=== PATIENT | male | born 1965 | race Caucasian/White ===

== ENCOUNTER 2019-06-19 03:46 | Emergency (ER) | payer SELFPAY ==
[2019-06-19] MEDS ORDERED: EPINEPHRINE INJ/PF 1 MG/1 ML AMPULE ONE (04:05)
[2019-06-19] MEDS ORDERED: EPINEPHRINE INJ/PF 1 MG/1 ML AMPULE IM ONE (04:07)
[2019-06-19] MEDS ORDERED: DIPHENHYDRAMINE HCL 50 MG/ML VIAL IV ONE (04:08)
[2019-06-19] MEDS ORDERED: METHYLPREDNISOLONE INJ 125 MG/2 ML SDV IV ONE (04:08)
[2019-06-19] MEDS ORDERED: FAMOTIDINE INJ/PF 20 MG/2 ML SDV IV ONE (04:08)
[2019-06-19] MEDS ORDERED: NORMAL SALINE 250 ML IV PRN ×2 (04:12)
--- NOTE | 2019-06-19 04:18 | ER Document Report ---
ED ENT - General Chief Complaint: allerigc reaction Stated Complaint: ALLERGIC REACTION Time Seen by Provider: 06/19/19 04:00 Notes: Patient is a 53-year-old male that comes emergency department for chief complaint of swelling to the lips and face. He states his voice is starting to get a little bit muffled to. He states this started about 3 PM but worsened over the past 12 hours including over the past hour to the point that he came in with his to the emergency department. He denies painful or difficulty swallowing, he denies shortness of breath. He states he has had some cough, cold, congestion over the past couple of days and he was started on Phenergan and dextromethorphan along with Tiffanie by urgent care. He states he takes no prescribed daily medications include lisinopril. He denies any diagnosed medical history. He denies history of angioedema. He denies any other complaints. TRAVEL OUTSIDE OF THE [place] IN LAST 30 DAYS: Yes - Related Data Allergies/Adverse Reactions: No Known Allergies Allergy (Unverified 12/05/13 09:43) Home Medications: promathazine. Tiffanie D Past Medical History - General Information source: Patient - Social History Smoking Status: Current Every Day Smoker Chew tobacco use (# tins/day): No Frequency of alcohol use: None Drug Abuse: None Lives with: Family Family History: Reviewed & Not Pertinent Patient has suicidal ideation: No Patient has homicidal ideation: No - Past Medical History Cardiac Medical History: Reports: Hx Hypercholesterolemia Past Surgical History: Reports: Hx Orthopedic Surgery - right knee - Immunizations Hx Diphtheria, Pertussis, Tetanus Vaccination: Yes Review of Systems - Review of Systems Constitutional: No symptoms reported EENT: See HPI Cardiovascular: No symptoms reported Respiratory: No symptoms reported Gastrointestinal: No symptoms reported Genitourinary: No symptoms reported Male Genitourinary: No symptoms reported Musculoskeletal: No symptoms reported Skin: No symptoms reported Hematologic/Lymphatic: No symptoms reported Neurological/Psychological: No symptoms reported Physical Exam - Vital signs Vitals: Temp Pulse Resp BP Pulse Ox 97.7 F 79 18 137/85 H 97 06/19/19 03:53 06/19/19 03:53 06/19/19 03:53 06/19/19 03:53 06/19/19 03:53 - Notes Notes: GENERAL: Alert, interacts well. HEAD: Normocephalic, atraumatic. EYES: Pupils equal, round, and reactive to light. Extraocular movements intact. ENT: Very swollen lips especially in the lower lip with angioedema. Tongue is normal, oropharynx is normal, uvula is normal. Airway patent. Nares patent, no nasal septal hematoma, TM's intact. NECK: Full range of motion. Supple. Trachea midline. LUNGS: Clear to auscultation bilaterally, no wheezes, rales, or rhonchi. No respiratory distress. HEART: Regular rate and rhythm. No murmur ABDOMEN: Soft, non-tender. Non-distended. EXTREMITIES: Moves all 4 extremities spontaneously. No edema, normal radial and dorsalis pedis pulses bilaterally. No cyanosis. BACK: no cervical, thoracic, lumbar midline tenderness. No saddle anesthesia, normal distal neurovascular exam. Moves all extremities in full range of motion. NEUROLOGICAL: Alert and oriented x3. Normal speech. Cranial nerves II through XII grossly intact. PSYCH: Normal affect, normal mood. SKIN: Warm, dry, normal turgor. No rashes or lesions noted. Course - Re-evaluation Re-evalutation: 06/19/19 04:15 Patient's evaluation shows large amount of swelling to the lips, especially to the lower lip, he has a slightly muffled voice but he is still able to speak without difficulty. He is not drooling. His tongue is not swollen, his posterior pharynx, soft palate, and airway are not swollen or obstructed. Patient denies difficulty breathing. He is not wheezing. He has no signs of distress. Patient is technically grade 1 angioedema at this time. I did discuss with Dr. Sy and he did evaluate the patient at bedside. Patient is being given antihistamines, epinephrine, and he will be also given FFP. Patient will be closely reevaluated for any signs of progression or impending airway compromise. 06/19/19 04:35 Patient has not had any benefit from the epinephrine, Benadryl, Solu-Medrol, Pepcid. However he is not any worse, he has not progressed, he has no signs of distress. This appears to be angioedema and patient will continue to be closely monitored. Patient is receiving the FFP. He has been reevaluated twice more and is actually improving. His lips are noticeably less swollen. He has no swelling of the posterior pharynx, tongue, airway. He is tolerating his secretions without any difficulty. He denies shortness of breath. Laboratory work-up unremarkable. Patient's evaluation is consistent with angioedema and he is improving. Patient will be monitored for several hours more to make sure he continues to improve and does not have any worsening symptoms. After this patient will be discharged home and simply take his Tiffanie but he will avoid his Phenergan and dextromethorphan. Patient was discussed with Dr. Joseph who will monitor the patient. Patient states appreciation and agreement. - Vital Signs Vital signs: Temp Pulse Resp BP Pulse Ox 97.5 F 70 24 H 131/77 H 97 06/19/19 05:50 06/19/19 05:50 06/19/19 06:01 06/19/19 06:00 06/19/19 06:01 - Laboratory Result Diagrams: 06/19/19 04:05 Laboratory results interpreted by me: 06/19/19 04:05 WBC 11.2 H Hgb 17.2 H Discharge - Discharge Clinical Impression: Angioedema Qualifiers: Encounter type: initial encounter Qualified Code(s): T78.3XXA - Angioneurotic edema, initial encounter Condition: Stable Disposition: HOME, SELF-CARE Additional Instructions: Your evaluation is consistent with angioedema. This should simply continue to r esolve with time. I do recommend you continue to take your Tiffanie for the next 7 days, but because of your symptoms and the uncertain source I suggest you stop the cough syrup. Follow close with primary care. Return if you worsen in any way including increased swelling, difficulty swallowing or breathing, or any other concerning or worsening symptoms. Forms: Return to Work
[2019-06-19 04:29] LABS: ABSOLUTE BASOPHILS # (AUTO) 0.1 10^3/uL (0.0-0.2); ABSOLUTE EOSINOPHILS # (AUTO) 0.1 10^3/uL (0.0-0.6); ABSOLUTE LYMPHOCYTES (AUTO) 3.8 10^3/uL (0.5-4.7); ABSOLUTE MONOCYTES (AUTO) 1.3 10^3/uL (0.1-1.4); ABSOLUTE NEUT (AUTO) 6.1 10^3/uL (1.7-8.2); BASOPHILS % (AUTO) 0.5 % (0-2); EOSINOPHILS % (AUTO) 0.5 % (0-6); HEMOGLOBIN 17.2 g/dL (13.5-17.0); LYMPHOCYTES % (AUTO) 33.4 % (13-45); MEAN CORPUSCULAR HEMOGLOBIN 31.4 pg (27.0-33.4); MEAN CORPUSCULAR HGB CONC 34.3 g/dL (32.0-36.0); MEAN CORPUSCULAR VOLUME 92 fl (80-97); MONOCYTES % (AUTO) 11.2 % (3-13); PLATELET COUNT 227 10^3/uL (150-450); RED BLOOD COUNT 5.46 10^6/uL (4.35-5.55); RED CELL DISTRIBUTION WIDTH 12.6 % (11.5-14.0); SEGMENTED NEUTROPHILS % (AUTO) 54.4 % (42-78); TOTAL CELLS COUNTED % (AUTO) 100 %; WHITE BLOOD COUNT 11.2 10^3/uL (4.0-10.5)
[2019-06-19 05:06] LABS: PROTHROMBIN TIME 12.1 SEC (11.4-15.4)
--- NOTE | 2019-06-19 07:18 | ER Document Report ---
ED General - General Chief Complaint: Edema Stated Complaint: ALLERGIC REACTION Time Seen by Provider: 06/19/19 04:00 TRAVEL OUTSIDE OF THE [place] IN LAST 30 DAYS: Yes - Related Data Allergies/Adverse Reactions: No Known Allergies Allergy (Unverified 12/05/13 09:43) Home Medications: promathazine. Tifafnie D Past Medical History - General Information source: Patient - Social History Smoking Status: Current Every Day Smoker Chew tobacco use (# tins/day): No Frequency of alcohol use: None Drug Abuse: None Lives with: Family Family History: Reviewed & Not Pertinent Patient has suicidal ideation: No Patient has homicidal ideation: No - Past Medical History Cardiac Medical History: Reports: Hx Hypercholesterolemia Past Surgical History: Reports: Hx Orthopedic Surgery - right knee - Immunizations Hx Diphtheria, Pertussis, Tetanus Vaccination: Yes Physical Exam - Vital signs Vitals: Temp Pulse Resp BP Pulse Ox 97.7 F 79 18 137/85 H 97 06/19/19 03:53 06/19/19 03:53 06/19/19 03:53 06/19/19 03:53 06/19/19 03:53 Course - Vital Signs Vital signs: Temp Pulse Resp BP Pulse Ox 97.5 F 70 24 H 131/77 H 97 06/19/19 05:50 06/19/19 05:50 06/19/19 06:01 06/19/19 06:00 06/19/19 06:01 - Laboratory Result Diagrams: 06/19/19 04:05 Laboratory results interpreted by me: 06/19/19 04:05 WBC 11.2 H Hgb 17.2 H Critical Care Note - Critical Care Note Total time excluding time spent on procedures (mins): 32 Comments: The above patient is critically ill. Not including procedures, but including direct re-evaluations, speaking with patient and/or consultants, interpreting results, and documenting, I spent the total amount of minute listed listed above on critical care time Critical care billing to the chart by MINDY Bonilla I was clear involved in this case as well Discharge - Discharge Clinical Impression: Angioedema Qualifiers: Encounter type: initial encounter Qualified Code(s): T78.3XXA - Angioneurotic edema, initial encounter Condition: Stable Disposition: HOME, SELF-CARE Additional Instructions: Your evaluation is consistent with angioedema. This should simply continue to resolve with time. I do recommend you continue to take your Tiffanie for the next 7 days, but because of your symptoms and the uncertain source I suggest you stop the cough syrup. Follow close with primary care. Return if you worsen in any way including increased swelling, difficulty swallowing or breathing, or any other concerning or worsening symptoms. Forms: Return to Work
[2019-06-19 08:09] VITALS: BP 134/65
== END 2019-06-19 07:45 | disposition home or self-care (01) ==
LOC: ER 03:46
DX: T78.3XXA Angioneurotic edema, initial encounter (principal); X58.XXXA Exposure to other specified factors, initial encounter; R05 Cough; J00 Acute nasopharyngitis [common cold]; F17.200 Nicotine dependence, unspecified, uncomplicated
CPT/HCPCS: 99285; 96372; 96374; 96375; 86900; 86901; 36415; 36430; 86850; 85025; 85610; 85730; P9017; J1200; J0171; J2930; J7050; S0028